=== PATIENT | female | born 1990 | race Caucasian/White ===

== ENCOUNTER 2016-08-12 00:51 | Emergency (ER) | payer BC ==
[~2016-08-12] VITALS: Ht 177.8 cm; Wt 72.7 kg
[~2016-08-12 00:51] MED LIST: FLEXERIL5 MG PO; LEVOXYL0.125 MG PO; SYNTHROID0.137 MG PO; ZOFRAN ODT4 MG PO
[2016-08-12 00:53] VITALS: TEMP 98
[2016-08-12 02:27] VITALS: BP 138/71; PULSE 78
== END 2016-08-12 02:27 | disposition home or self-care (01) ==
LOC: COL.ER 00:51
DX: R53.81 Other malaise (principal); R07.89 Other chest pain; E07.9 Disorder of thyroid, unspecified; R42 Dizziness and giddiness